=== PATIENT | male | born 1975 | race Caucasian/White ===

== ENCOUNTER 2024-10-09 06:53 | Emergency (ER) | payer OTHER, SELFPAY ==
[2024-10-09 06:58] VITALS: BP 165/104
[2024-10-09 07:33] VITALS: BP 154/99
--- NOTE | 2024-10-09 07:36 | ED.SKININJ ---
HPI-Injury
General
Chief Complaint: Skin Surface Trauma
Source: patient
Exam Limitations: none
Time Seen by Provider: 10/09/24 07:12
Nursing documentation reviewed up to this point in time: agreed with
History of Present Illness-Injury
Initial Injury comments:
49-year-old male with no significant past medical history is here for a laceration of his right fifth finger that occurred about 2 hours ago at home while he was washing dishes. He is unsure of his last tetanus immunization.
Past History
Past History
ED Past Medical History: Other (Kidney stones)
ED Past Surgical History: None
Social History
Tobacco: Non-smoker
Alcohol: None
Personal:
Living: with family
Employment: Employed
Review of Systems
Review of Systems
Allergies reviewed?: Yes
All Other Systems: ROS reviewed and negative except as documented in HPI and ROS
Skin: Reports other (Cut right fifth finger)
Phy Exam
Physical Exam
Physical Exam:
PHYSICAL EXAMINATION:
General: no apparent distress, not acutely ill
Neuro: alert and oriented.
Psychiatric: well kept. interactive and cooperative
Musculoskeletal: Moves with ease
Skin: Warm, pink.
Course
Orders/Labs/Results
Orders:
Orders
10/09/24 07:33
Tetanus/Diphth/Acelpertussis [Adacel] 0.5 ml IM .ONCE ONE
Vital Signs
Initial and Last Documented VS:
Initial Vital Signs
Temp Pulse Resp BP Pulse Ox
97.9 F 60 16 165/104 100
10/09/24 06:58 10/09/24 06:58 10/09/24 06:58 10/09/24 06:58 10/09/24 06:58
Last Documented Vital Signs
Temp Pulse Resp BP Pulse Ox
97.9 F 60 16 154/99 100
10/09/24 06:58 10/09/24 06:58 10/09/24 06:58 10/09/24 07:33 10/09/24 06:58
Procedures
Laceration Closure
Ulnar aspect right fifth finger:
Status of Wound: clean
Size of Wound in cm: 1
Description of Wound Edges: flap-well vascularized
Preparation: cleaned with saline
Revision/Debridement: routine- no revision
Wound exploration: no tendon involvement
Type of Closure: Dermabond-skin glue (Reinforced with Steri-Strips, Band-Aid applied. Aluminum helmet splint applied)
MDM/Problems Addressed
MDM/Problems Addressed:
49-year-old male with no significant past medical history is here for a laceration of his right fifth finger that occurred about 2 hours ago at home while he was washing dishes. He is unsure of his last tetanus immunization.
Tdap updated
*Critical Care Note
Total Time (30-74mins, 75-104mins- exclusive of procedures): Not Applicable
ED Attending Note
-
Portions of this chart may have been created with voice recognition software.� Occasional wrong word or��sound alike� substitutions may have occurred due to the inherent limitations of voice recognition software.
Discharge Plan
Departure
Patient Disposition: Home (Routine Discharge)
Date of Disposition: 10/09/24
Time of Disposition: 07:33
Patient with high blood pressure during this ER visit?: No
Condition: Good
Discharge Problem:
Finger laceration
Instructions: Laceration Repair With Glue (DC)
Prescriptions:
No Action
oxycodone 5 mg tablet
5 mg PO Q6H PRN (Reason: Pain) Qty: 14 0RF
ondansetron 4 mg tablet,disintegrating
4 mg PO Q8H 3 Days Qty: 9 0RF
Referrals:
Nimisha Ruff MD [Non-Admitting Privileges] - As needed
Activity Restrictions/Additional Instructions:
As we discussed, it takes about 2 weeks for this area to heal.
Keep the Band-Aid and splint on, clean and dry, until .
On you may remove the splint and shower as usual with a Band-Aid on. Afterwards, gently remove the Band-Aid and allow the strips to air dry or blow them dry
Allow the strips to follow-up by themselves. If they are not off by 14 days, you may remove them
If they evolve before then it is okay, simply keep the wound covered with a Band-Aid and use the splint for protection
Seek medical care immediately if you note signs of infection which may include increasing redness, pain, swelling, pus drainage, red streak up the wrist or fever
Interventions
Interventions:
*Risk Screen - Suicide Last Done: 10/09/24 06:58
*General Assessment Last Done: 10/09/24 06:58
*Neglect/Abuse Screening Last Done: 10/09/24 07:52
*ED- Fall Risk Assessment Last Done: 10/09/24 07:19
*ED COVID-19 Vaccine History Last Done: 10/09/24 07:19
*Nursing Disposition Last Done: 10/09/24 07:51
ED-Skin Assessment Last Done: 10/09/24 07:19
Discharge Date and Time
Discharge Date/Time: 10/09/24 07:52
Print Language: [place]
[2024-10-09] MEDS: ADACEL 0.5 ML IM (07:39)
== END 2024-10-09 07:52 | disposition home or self-care (01) ==
LOC: EMR 06:53
PROVIDERS: EMERGENCY PHYSICIAN Emergency Medicine
DX: S61.216A Laceration without foreign body of right little finger without damage to nail, initial encounter (principal); W45.8XXA Other foreign body or object entering through skin, initial encounter; Z23 Encounter for immunization; Z87.442 Personal history of urinary calculi
CPT/HCPCS: 99282; 12001; 90471; 90715